=== PATIENT | female | born 1990 | race Caucasian/White ===

== ENCOUNTER → 2022-04-20 | Outpatient (CLI) | payer OTHER ==
[~2022-04-20] MED LIST: GADOTERATE MEGLUMINE 10 MMOL/20 ML VIAL IVP ONE
== END | disposition home or self-care (01) ==
LOC: RADMN 12:25
PROVIDERS: ATTEND Internal Medicine Cardiovascular Disease
DX: G93.0 Cerebral cysts (principal); R29.818 Other symptoms and signs involving the nervous system; G93.40 Encephalopathy, unspecified
CPT/HCPCS: 70553; A9575